=== PATIENT | male | born 1970 | race Caucasian/White ===

== ENCOUNTER → 2021-03-06 13:16 | Outpatient (BNVA) | payer OTHER, SELFPAY | PROVIDERS: Visit Provider Nurse Practitioner | DX: Z20.822 Contact with and (suspected) exposure to COVID-19 (principal) | CPT/HCPCS: 87426; 87635 ==

== ENCOUNTER 2021-10-31 10:23 | Outpatient (CLI) | payer OTHER, SELFPAY ==
--- NOTE | 2021-10-31 10:35 | XR_ITS ---
WS: [id number] Exam: XR lumbar spine 2-3V* [id number] Date/Time of Exam: 10/31/2021 10:35 AM Reason For Exam: BACK PAIN Comparison 09/19/2007. No acute fracture or dislocation. Mild spondylosis. Posterior elements are intact. Disc spaces are pr eserved. XR/XR lumbar spine 2-3V* [id number] IMPRESSION: 1. No fracture or malalignment.
== END 2021-10-31 10:24 | disposition home or self-care (01) ==
PROVIDERS: Visit Provider Dermatology
DX: M54.50 Low back pain, unspecified (principal)
CPT/HCPCS: 72100

== ENCOUNTER 2022-05-31 12:27 | Emergency (ER) | payer BC, MEDICAID, SELFPAY ==
[2022-05-31 12:33] VITALS: BP 152/92; PULSE 72; RESP 16; TEMP 36.6; O2SAT 93; BMI 25.0
[2022-05-31] MEDS: sodium chloride 0.9% 1,000 ML 999 ML IV (13:04)
[2022-05-31] MEDS: ondansetron 2 mg/ML SDV 2 mL 4 MG IVP (13:05)
[2022-05-31 13:07] VITALS: BP 152/92; PULSE 64; RESP 16; O2SAT 91
[2022-05-31 13:17] LABS: Basophils % 0.1 %; Eosinophils # 0.3 10^3/uL (0.0-0.8); Eosinophils % 3.1 %; Hemoglobin 16.3 g/dL (11.7-16.6); Lymphocytes # 1.3 10^3/uL (0.8-4.8); Lymphocytes % 14.5 %; Mean Corpuscular HGB Conc 32.6 g/dL (30.0-36.0); Mean Corpuscular Hemoglobin 29.8 pg (28.0-34.0); Mean Corpuscular Volume 91.4 fl (80-94); Mean Platelet Volume 10.9 fL (7.4-10.4); Monocytes # 0.7 10^3/uL (0.2-0.9); Monocytes % 7.8 %; Neutrophils # 6.45 10^3/uL (1.8-7.7); Neutrophils % 74.2 %; Nucleated Red Blood Cells % 0 %; Platelet Count 197 10^3/cmm (130-400); Red Blood Count 5.47 10^6/uL (4.1-5.3); Red Cell Distribution Width 13.1 % (12.1-15.1); White Blood Count 8.7 10^3/uL (4.0-10.0)
--- NOTE | 2022-05-31 13:22 | ED_ITS ---
HPI - Nausea/Vomiting/Diarrhea General: Chief complaint: Nausea/Vomiting/Diarrhea Stated complaint: n/v/ poss food poisoning Time Seen by Provider: 05/31/22 12:34 Source: patient Mode of arrival: ambulatory History of Present Illness: 81-year-old male presents with persistent nausea vomiting and loose stools that began yesterday after eating something the day prior he narrowed it down to some hamburger helper that he had had no one else in the home is sick. Denies hematochezia melena hematemesis coffee-ground emesis MD elicited complaint: nausea, vomiting and diarrhea Onset (ago): day(s) (1) Description of vomiting: food contents and watery Description of diarrhea: lose Associated nausea: Yes Associated abdominal pain: Yes Location of pain: Diffuse Severity: mild Quality: cramping Exacerbating factors: none Relieving factors: none Associated symtoms: Reports nausea; Denies anxiety, bloating, change in vision, chest pain, cough, diaphoresis, decreased urine output, dizziness, dysuria, epistaxis, fatigue, fecal incontinence, fevers/chills, headache(s), anorexia, malaise, myalgias, numbness, palpitations, rash, short of breath, syncope, tenesmus, tinnitus or weakness Review of Systems Const: Denies: fever(s), chills, fatigue, malaise or diaphoresis Eyes: Denies: change in vision ENMT: Denies: tinnitus or epistaxis Card: Denies: chest pain, palpitations or syncope Resp: Denies: dyspnea, productive cough or non-productive cough GI: Reports: abdominal pain, nausea, vomiting and GI cramping; Denies: bloating or fecal incontinence : Denies: flank pain, dysuria, urinary frequency or urinary urgency Skin/Breast: Denies: rash or pruritus Neuro: Denies: headache(s) or dizziness Psych: Denies: anxiety PFSH ED PFSH: Social History Smoking and tobacco status: current every day smoker e-cigarettes Physical Exam Const: GENERAL APPEARANCE: cooperative and comfortable ORIENTATION/CONSCIOUSNESS: Yes awake, Yes oriented to person, Yes oriented to place and Yes oriented to time HENMT: COMMON NORMALS: normocephalic, atraumatic and hearing grossly normal bilaterally HEAD & SCALP: normocephalic and atraumatic Resp: COMMON NORMALS: normal respiratory effort, No retractions, No use of accessory muscles and clear to auscultation bilaterally AUSCULTATION: clear to auscultation bilaterally Cardio: COMMON NORMALS: regular rate, regular rhythm and No murmurs present (Cardio) RATE: regular rate RHYTHM: regular rhythm GI: COMMON NORMALS: Soft to palpation and No hepatosplenomegaly present AUSCULTATION: Yes normoactive bowel sounds PALPATION: Yes Soft to palpation, No Tenderness to palpation present (GI), No Guarding due to palpation present (GI) and Yes No hepatosplenomegaly present Extremity: COMMON NORMALS: normal to inspection, capillary refill normal, no clubbing, cyanosis or edema, no calf tenderness and no pedal edema Neuro: SENSORIUM/ORIENTATION: Yes oriented to person, Yes oriented to place and Yes oriented to time Skin: COMMON NORMALS: no rashes or lesions noted GENERAL SKIN EXAM: no rashes or lesions noted Course Vital Signs: Vital signs: Vital Signs Temperature 97.9 F 05/31/22 12:33 Pulse Rate 63 05/31/22 14:20 Respiratory Rate 16 05/31/22 14:20 Blood Pressure 144/85 05/31/22 14:20 Pulse Oximetry 97 05/31/22 14:20 Oxygen Delivery Me thod 05/31/22 13:07 MDM - Nausea/Vomiting/Diarrhea Medical Decision Making Labs reviewed. Patient given IV fluids he is feeling better discharge home clinical diet antiemetics as needed follow-up as needed if has any hematochezia return to the emergency room. Medical Records I reviewed the patient's medical records. Lab Data I reviewed the patient's lab results. 05/31/22 13:01 05/31/22 13:01 Laboratory Results WBC 8.7 10^3/uL (4.0-10.0) 05/31/22 13:01 RBC 5.47 10^6/uL (4.1-5.3) H 05/31/22 13:01 Hgb 16.3 g/dL (11.7-16.6) 05/31/22 13:01 Hct 50.0 % (42.0-52.0) 05/31/22 13:01 MCV 91.4 fl (80-94) 05/31/22 13:01 MCH 29.8 pg (28.0-34.0) 05/31/22 13:01 MCHC 32.6 g/dL (30.0-36.0) 05/31/22 13:01 RDW 13.1 % (12.1-15.1) 05/31/22 13:01 Plt Count 197 10^3/cmm (130-400) 05/31/22 13:01 MPV 10.9 fL (7.4-10.4) H 05/31/22 13:01 Neut % (Auto) 74.2 % 05/31/22 13:01 Lymph % (Auto) 14.5 % 05/31/22 13:01 [place] % (Auto) 7.8 % 05/31/22 13:01 Eos % (Auto) 3.1 % 05/31/22 13:01 Baso % (Auto) 0.1 % 05/31/22 13:01 Neut # (Auto) 6.45 10^3/uL (1.8-7.7) 05/31/22 13:01 Lymph # (Auto) 1.3 10^3/uL (0.8-4.8) 05/31/22 13:01 [place] # (Auto) 0.7 10^3/uL (0.2-0.9) 05/31/22 13:01 Eos # (Auto) 0.3 10^3/uL (0.0-0.8) 05/31/22 13:01 Baso # (Auto) 0.0 10^3/uL (0.0-0.1) 05/31/22 13:01 Nucleated RBC % (auto) 0 % 05/31/22 13:01 Nucleated RBCs # 0.0 /100WBC 05/31/22 13:01 Sodium 141 mmol/L (136-145) 05/31/22 13:01 Potassium 4.5 mmol/L (3.5-5.1) 05/31/22 13:01 Chloride 105 mmol/L (98-107) 05/31/22 13:01 Carbon Dioxide 27 mmol/L (22-29) 05/31/22 13:01 Anion Gap 13.5 (5-19) 05/31/22 13:01 BUN 18 mg/dL (6-20) 05/31/22 13:01 Creatinine 0.7 mg/dL (0.7-1.2) 05/31/22 13:01 GFR Calculation 118.4 mL/min (90-130) 05/31/22 13:01 Glucose 109 mg/dL (65-115) 05/31/22 13:01 Calculated Osmolality 294 mOsm/kg (285-295) 05/31/22 13:01 Calcium 9.0 mg/dL (8.5-10.5) 05/31/22 13:01 Total Bilirubin 0.5 mg/dL (0.15-1.2) 05/31/22 13:01 AST 28 U/L (0-40) 05/31/22 13:01 ALT 16 U/L (0-41) 05/31/22 13:01 Alkaline Phosphatase 68 U/L (40-130) 05/31/22 13:01 Total Protein 7.2 g/dL (6.6-8.7) 05/31/22 13:01 Albumin 4.5 g/dL (3.5-5.2) 05/31/22 13:01 Globulin 2.7 g/dL (1.3-4.6) 05/31/22 13:01 Discharge Plan Discharge Patient Disposition: Home Clinical Impression: Nausea & vomiting Condition: Stable Prescriptions: New ondansetron HCl 4 mg tablet 4 mg PO Q6H PRN (Reason: nausea and vomiting) Qty: 20 0RF No Action buprenorphine HCl 8 mg tablet, sublingual 4 mg SUBLINGUAL TID Discharge Orders: Discharge ED (Routine); Ordered 05/31/22 Ordered By: Torito Delgado Discharge Diet: Clear Liquid Discharge Activity: Resume usual activity Patient Instructions: Opioid Safety, Pain Management Activity Restrictions/Additional Instructions: Laboratory tests were unremarkable. Recommend that you follow a clear liquid diet for the next 24 to 48 hours and advance as tolerated using ondansetron as needed for nausea or vomiting. Coding Level of Care Code ED Coordinator Skill Training Program for Alan Guevara
[2022-05-31 13:35] LABS: Alanine Aminotransferase 16 U/L (0-41); Albumin Level 4.5 g/dL (3.5-5.2); Alkaline Phosphatase 68 U/L (40-130); Anion Gap 13.5 (5-19); Aspartate Amino Transferase 28 U/L (0-40); Blood Urea Nitrogen 18 mg/dL (6-20); Carbon Dioxide 27 mmol/L (22-29); Chloride 105 mmol/L (98-107); Globulin 2.7 g/dL (1.3-4.6); Glomerular Filtration Rate 118.4 mL/min (90-130); Glucose 109 mg/dL (65-115); Osmolality Calculated 294 mOsm/kg (285-295); Potassium 4.5 mmol/L (3.5-5.1); Sodium 141 mmol/L (136-145); Total Bilirubin 0.5 mg/dL (0.15-1.2); Total Protein 7.2 g/dL (6.6-8.7)
[2022-05-31 14:15] VITALS: BP 138/84; PULSE 58; RESP 16; O2SAT 94
[2022-05-31 14:20] VITALS: BP 144/85; PULSE 63; RESP 16; O2SAT 97
--- NOTE | 2022-06-01 13:52 | DCPLANNER ---
Addendum entered by Rose Marie Booth 06/09/22 09:26: Patient had a follow up appointment scheduled to establish care with Dr. Bonilla at [facility] - patient did attend appointment. Original Note: drilling manager called patient due to no primary care physician - patient stated that he would like help in getting established with a primary care physician. drilling manager called [facility], spoke with Jory, gave clinic patients information. A follow up appointment was scheduled for May at 10:[address] Bonilla, nurse case management gave patient the appointment information.
== END 2022-05-31 14:22 | disposition home or self-care (01) ==
PROVIDERS: Emergency Provider Family Medicine
DX: R11.2 Nausea with vomiting, unspecified (principal); F17.290 Nicotine dependence, other tobacco product, uncomplicated
CPT/HCPCS: 80053; 85025; 96361; 96374; 99284; J2405; J7030

== ENCOUNTER → 2022-06-07 08:45 | Outpatient (BNVA) | payer BC, MEDICAID, SELFPAY | PROVIDERS: Visit Provider Family Medicine | DX: R11.2 Nausea with vomiting, unspecified (principal); Z79.899 Other long term (current) drug therapy; G62.9 Polyneuropathy, unspecified | CPT/HCPCS: 80053; 80061; 83036; 84439; 84443; 85025 ==

== ENCOUNTER → 2022-10-05 09:43 | Outpatient (BNVA) | payer BC, MEDICAID, SELFPAY | PROVIDERS: PCP Family Medicine; Visit Provider Nurse Practitioner Family | DX: M25.562 Pain in left knee (principal); M11.262 Other chondrocalcinosis, left knee | CPT/HCPCS: 73562 ==

== ENCOUNTER 2023-04-14 17:55 | Emergency (ER) | payer BC, MEDICAID, SELFPAY ==
--- NOTE | 2023-04-14 17:59 | XRR_ITS ---
PROCEDURE INFORMATION: Exam: XR Chest Exam date and time: 04/14/2023 6:18 PM Age: 52 years old Clinical indication: Patient HX: Cough; Chest congestion; Recent pneumonia diagnosis; New onset fever x 1 day TECHNIQUE: Imaging protocol: Radiologic exam of the chest. Views: 1 view. COMPARISON: CR XR chest 1V [id number] 11/02/2017 11:26 PM FINDINGS: Lungs: Unremarkable. No consolidation. Pleural spaces: Unremarkable. No pleural effusion. No pneumothorax. Heart/Mediastinum: Unremarkable. No cardiomegaly. Bones/joints: Unremarkable. XR/XR chest 1V portable [id number] IMPRESSION: No acute findings.
[2023-04-14 18:34] VITALS: BP 183/88; PULSE 77; RESP 17; TEMP 36.4; O2SAT 96; BMI 26.7
[2023-04-14 18:37] LABS: Basophils % 0.6 %; Eosinophils # 0.4 10^3/uL (0.0-0.8); Eosinophils % 5.2 %; Hematocrit 47.2 % (37-53); Lymphocytes # 1.4 10^3/uL (0.8-4.8); Lymphocytes % 21.3 %; Mean Corpuscular HGB Conc 33.3 g/dL (30-55); Mean Corpuscular Hemoglobin 32.4 pg (27-33); Mean Corpuscular Volume 97.3 fl (82-101); Mean Platelet Volume 10.4 fL (7.4-10.4); Monocytes # 0.6 10^3/uL (0.2-0.9); Monocytes % 9.4 %; Neutrophils # 4.24 10^3/uL (1.8-7.7); Neutrophils % 63.2 %; Nucleated Red Blood Cells % 0 %; Platelet Count 159 10^3/cmm (157-399); Red Blood Count 4.85 10^6/uL (3.85-5.65); Red Cell Distribution Width 13.7 % (12.1-15.1); White Blood Count 6.71 10^3/uL (3.29-11.43)
[2023-04-14 19:00] VITALS: BP 168/99; PULSE 73; RESP 16; O2SAT 96
[2023-04-14 19:10] LABS: Alanine Aminotransferase 42 U/L (0-41); Albumin Level 3.9 g/dL (3.5-5.2); Alkaline Phosphatase 76 U/L (40-130); Anion Gap 14.2 (5-19); Aspartate Amino Transferase 32 U/L (0-40); Blood Urea Nitrogen 18 mg/dL (6-20); Calcium 9.2 mg/dL (8.5-10.5); Carbon Dioxide 25 mmol/L (22-29); Chloride 103 mmol/L (98-107); Creatinine Clr Calc Pharmacy 128.0404; Globulin 3.3 g/dL (1.3-4.6); Glomerular Filtration Rate 101.1 mL/min (90-130); Glucose 103 mg/dL (65-115); Magnesium 2.2 mg/dL (1.7-2.3); NT Pro B Type Natriuretic Pept 66 pg/mL (0-125); Osmolality Calculated 288 mOsm/kg (285-295); Potassium 4.2 mmol/L (3.5-5.1); Sodium 138 mmol/L (136-145); Total Bilirubin 0.3 mg/dL (0.15-1.2); Total Protein 7.2 g/dL (6.6-8.7)
--- NOTE | 2023-04-14 20:15 | W.ED.EAR ---
HPI - Ear Problem General: Chief complaint: Ear Stated complaint: sent by , pain in ears, fatigue Time Seen by Provider: 04/14/23 19:34 Source: patient Mode of arrival: ambulatory Limitations: no limitations History of Present Illness: Patient presents emergency department today for evaluation treatment of continued cough and concerns for ear infection. Patient's chart review shows that he was diagnosed with pneumonia a couple of weeks ago. Patient was treated with antibiotics which she states he took in its entirety. He was also given a round of steroids and an albuterol inhaler. Patient has not been running fevers. He still has a cough and reports sputum with clear, stringy mucus. He is concerned as he is experiencing bilateral ear pain now. He has not noticed any draining from the ears. He has had quite a bit of postnasal drip and complains of nasal congestion as well. Review of Systems General: Reports: 10 or more systems reviewed and unremarkable except in HPI and below PFSH ED PFSH: Medical History Right wrist tendonitis GERD (gastroesophageal reflux disease) High risk medication use Bilateral knee pain Chronic back pain Surgical History History of tonsillectomy History of arthroscopic knee surgery bilateral Family History Other Dementia Hypertension Lung disease Psychiatric illness Denies family history of Diabetes CAD (coronary artery disease) Clotting disorder Hyperlipidemia Chronic kidney disease (CKD) Anesthesia complication Bleeding disorder Cancer Stroke Social History Smoking and tobacco/nicotine status: current every day tobacco/nicotine user e-cigarettes E-Cigarette Details: vaporizer device E-cig/vape details: daily. 70PY tobacco Hx (quit 2019) Alcohol intake: current Alcohol intake frequency: few times a month Substance/Drug Use: never Lives independently: Yes Marital status: Number of children: 5 Current occupational status: employed Current occupation: [employer] Current gender identity: Male Special ana maria needs: No Agree to transfusion: Yes Physical Exam Const: COMMON NORMALS: no acute distress, patient oriented x3 and alert HENMT: OTHER: TMs are translucent bilaterally but are bulging with serous accumulation behind the eardrums. EACs are clear without accumulation, redness, or swelling. Pharynx is nonerythematous. Mucous membranes are moist. Patient is audibly congested with boggy nasal passages. Eye: COMMON NORMALS: Equal, round and reactive pupils present, EOMs intact bilaterally and conjunctivae normal CONJUNCTIVA: Yes conjunctivae normal PUPIL: Yes Equal, round and reactive pupils present Neck/C-Spine: COMMON NORMALS: no JVD Lymph: LYMPHATIC: no lymphadenopathy noted Resp: COMMON NORMALS: normal respiratory effort, No retractions and No use of accessory muscles OTHER: No wheezing. No rhonchi. Cardio: COMMON NORMALS: no JVD and regular rate RATE: regular rate : COMMON NORMALS: Yes no CVA tenderness BLADDER/KIDNEY EXAM: Yes no CVA tenderness Back/Pelvis: COMMON NORMALS: no CVA tenderness, thoracic and lumbar spine normal to inspection and thoraco-lumbar ROM normal Extremity: COMMON NORMALS: normal to inspection, full ROM and no pedal edema Neuro: COMMON NORMALS: patient oriented x3 SENSORIUM/ORIENTATION: Yes alert Skin: COMMON NORMALS: no rashes or lesions noted and turgor normal GENERAL SKIN EXAM: no rashes or lesions noted and turgor normal Course Vital Signs: Vital signs: Vital Signs Temperature 97.6 F 04/14/23 18:34 Pulse Rate 67 04/14/23 21:01 Respiratory Rate 16 04/14/23 21:01 Blood Pressure 156/100 04/14/23 21:01 Pulse Oximetry 97 04/14/23 21:01 Oxygen Delivery Me thod Room Air 04/14/23 21:01 MDM - Ear Medical Decision Making Repeat chest x-ray today shows no signs of any residual pneumonias. Patient's cough is more characteristic of remnant mucus removal from his recent illness. Warned him that post pneumonia cough can last for several weeks. Patient's ears are not infected but we did discuss serous otitis media. As he is having quite a bit of postnasal drip he most likely has some inflammation and irritation of the throat which is causing occlusion of his eustachian tubes. We will try patient on another round of steroids and encouraged [id number] Flonase to be used as well. Patient is requesting a refill on his albuterol inhaler as he does not have it with him and will be staying away from home the next night or 2. Medications provided to him here in the emergency department for treatment this evening with rest being sent to his pharmacy to be picked up and continued in the morning. However, strict return precautions were given for any signs of respiratory distress or worsening symptoms. Patient verbalizes understanding and agreement to treatment plan. Differential Diagnosis Likely otitis media (Serous); Unlikely otitis externa, foreign body in ear, ruptured TM or cerumen impaction Lab Data 04/14/23 18:30 04/14/23 18:30 Radiology Impressions Chest X-Ray 04/14/23 17:59 IMPRESSION: No acute findings. Laboratory Results WBC 6.71 10^3/uL (3.29-11.43) 04/14/23 18: RBC 4.85 10^6/uL (3.85-5.65) 04/14/23 18:30 Hgb 15.70 g/dL (11.27-16.99) 04/14/23 18:30 Hct 47.2 % (37-53) 04/14/23 18:30 MCV 97.3 fl (82-101) 04/14/23 18:30 MCH 32.4 pg (27-33) 04/14/23 18: MCHC 33.3 g/dL (30-55) 04/14/23 18:30 RDW 13.7 % (12.1-15.1) 04/14/23 18:30 Plt Count 159 10^3/cmm (157-399) 04/14/23 18:30 MPV 10.4 fL (7.4-10.4) 04/14/23 18:30 Neut % (Auto) 63.2 % 04/14/23 18:30 Lymph % (Auto) 21.3 % 04/14/23 18:30 Lynn % (Auto) 9.4 % 04/14/23 18:30 Eos % (Auto) 5.2 % 04/14/23 18: Baso % (Auto) 0.6 % 04/14/23 18:30 Neut # (Auto) 4.24 10^3/uL (1.8-7.7) 04/14/23 18:30 Lymph # (Auto) 1.4 10^3/uL (0.8-4.8) 04/14/23 18:30 Lynn # (Auto) 0.6 10^3/uL (0.2-0.9) 04/14/23 18:30 Eos # (Auto) 0.4 10^3/uL (0.0-0.8) 04/14/23 18:30 Baso # (Auto) 0.0 10^3/uL (0.0-0.1) 04/14/23 18:30 Nucleated RBC % (auto) 0 % 04/14/23 18:30 Nucleated RBCs # 0.0 /100WBC 04/14/23 18:30 Sodium 138 mmol/L (136-145) 04/14/23 18:30 Potassium 4.2 mmol/L (3.5-5.1) 04/14/23 18:30 Chloride 103 mmol/L (98-107) 04/14/23 18:30 Carbon Dioxide 25 mmol/L (22-29) 04/14/23 18:30 Anion Gap 14.2 (5-19) 04/14/23 18:30 BUN 18 mg/dL (6-20) 04/14/23 18:30 Creatinine 0.8 mg/dL (0.7-1.2) 04/14/23 18:30 GFR Calculation 101.1 mL/min (90-130) 04/14/23 18:30 Glucose 103 mg/dL (65-115) 04/14/23 18:30 Calculated Osmolality 288 mOsm/kg (285-295) 04/14/23 18:30 Calcium 9.2 mg/dL (8.5-10.5) 04/14/23 18:30 Magnesium 2.2 mg/dL (1.7-2.3) 04/14/23 18:30 Total Bilirubin 0.3 mg/dL (0.15-1.2) 04/14/23 18:30 AST 32 U/L (0-40) 04/14/23 18:30 ALT 42 U/L (0-41) H 04/14/23 18:30 Alkaline Phosphatase 76 U/L (40-130) 04/14/23 18:30 NT-Pro-B Natriuret Pep 66 pg/mL (0-125) 04/14/23 18:30 Total Protein 7.2 g/dL (6.6-8.7) 04/14/23 18:30 Albumin 3.9 g/dL (3.5-5.2) 04/14/23 18:30 Globulin 3.3 g/dL (1.3-4.6) 04/14/23 18:30 All radiology interpretation(s) finalized by discharge Discharge Plan Discharge Patient Disposition: Home Clinical Impression: Eustachian tube dysfunction, Cough Condition: Stable Prescriptions: New methylprednisolone 4 mg tablets,dose pack See Rx Instructions .ROUTE .COMPLEX Qty: 21 0RF Rx Instructions: orally per package directions No Action ibuprofen 200 mg capsule 200 mg PO Q8H Tylenol Extra Strength 500 mg powder in packet 1,000 mg PO Q6H PRN saboxone 8 mg PO 2XD albuterol sulfate 90 mcg/actuation HFA aerosol inhaler 2 inh inhalation Q4H PRN (Reason: shortness of breath or wheezing) Qty: 8.5 0RF Discharge Orders: Discharge ED (Routine); Ordered 04/14/23 Ordered By: Arlette Jimenez Referrals: Kash Santos MD [Primary Care Provider] - Discharge Diet: Usual diet Discharge Activity: Increase activity as tolerated Patient Instructions: Fluid In The Ear (Serous Otitis Media) (ED) Activity Restrictions/Additional Instructions: Chest x-ray today shows no residual signs of any consolidation or pneumonia in the lungs. You may still have a clearing cough for several more weeks to help rid any excess mucus and congestion from the chest. This is normal. You can still use your albuterol inhaler as needed to help if you develop coughing fits or begin to feel tight in your chest. On evaluation of your ears, you do not have signs of infection but you do have an accumulation of fluid behind your eardrums. This causes increased pressure and bulging of your eardrums which not only causes pain but also decreases your hearing ability. This is often due to irritation and inflammation of your eustachian tubes. The eustachian tubes are the draining tubes of the fluid from behind the ear that empty into the back of the throat. When the throat is irritated from things such as allergies or inflammation from postnasal drip, it can close the opening of the eustachian tubes and therefore, fluid from behind the ears cannot drain. Unfortunately, if the fluid is not able to be removed from the ears, it is possible to develop an infection so, if you continue to have pain and irritation of your ears, develop fever, pain below your ears or behind your ears need to be seen and reevaluated again for potential development of infection. Until then, when to provide you some anti-inflammatory medication to see if we can reopen the eustachian tubes. I also encourage you to purchase [id number] Flonase as this is a steroid which is oftentimes delivered directly to the source of the opening of the eustachian tubes when it is used. Use 1 squirt in each nostril twice a day for the next few days as treatment. Coding Level of Care Code ED Billiard Table Repairer for Alan Guevara
[2023-04-14] MEDS: dexamethasone 10 mg/mL INJ IM (20:42)
[2023-04-14] MEDS: albuterol 8 gm MDI 2 PUFF INHALATION (21:00)
[2023-04-14 21:01] VITALS: BP 156/100; PULSE 67; RESP 16; O2SAT 97
== END 2023-04-14 21:02 | disposition home or self-care (01) ==
PROVIDERS: Emergency Medicine; Emergency Provider Physician Assistant; PCP Family Medicine
DX: H69.93 Unspecified Eustachian tube disorder, bilateral (principal); R05.9 Cough, unspecified; F17.290 Nicotine dependence, other tobacco product, uncomplicated
CPT/HCPCS: 36415; 71045; 80053; 83735; 83880; 85025; 94640; 96372; 99284; J1100; J3535

== ENCOUNTER 2024-08-09 10:51 | Emergency (ER) | payer BC, MEDICAID, SELFPAY ==
[2024-08-09 11:13] VITALS: BP 172/88; PULSE 60; RESP 17; TEMP 36.7; O2SAT 97; BMI 27.7
--- NOTE | 2024-08-09 11:33 | ED_ITS ---
HPI - Extremity Problem General: Chief complaint: Extremity Injury, Upper Stated complaint: left arm pain Time Seen by Provider: 08/09/24 11:30 History of Present Illness: 53-year-old male is presenting with left elbow pain for the last 3 weeks, he suspects he overused it at work but denies any discrete event such as trauma injury fall. He denies any associated fever chills swelling skin changes numbness or motor weakness. Pain is intermittent and usually associated with extension of the wrist. He denies any other acute complaints. He takes Mobic daily. Associated symptoms: Deny chest pain, fever(s) or rash Related Data Home Medications ?Medication ?Instructions ?Recorded ?Confirmed ibuprofen 200 mg capsule 200 mg PO Q8H 10/05/2206/11 saboxone 8 mg PO 2XD 03/31/23 5 Previous Rx's ?Medication ?Instructions ?Recorded duloxetine 30 mg capsule,delayed 30 mg PO DAILY #30 ca ps 05/02/24 release hydroxyzine HCl 50 mg tablet 50 mg PO QID PRN anxiety #120 tabs 05/02/24 trazodone 100 mg tablet 200 mg (2 x 100 mg) PO .HS P RN 05/02/24 insomnia #60 tabs Allergies Allergy/AdvReac Type Severity Reaction Status Date / Time No Known Allergies Allergy Verified 06/11/24 15:19 Review of Systems General: Reports: 10 or more systems reviewed and unremarkable except in HPI and below Const: Denies: fever(s) Eyes: Denies: change in vision ENMT: Denies: throat pain or odynophagia Card: Denies: chest pain, palpitations or dyspnea on exertion Resp: Denies: dyspnea, productive cough, non-productive cough or wheezing GI: Denies: abdominal pain, nausea, vomiting, diarrhea or constipation Musc: Reports: joint pain (bilateal knee pain, bilateral wrists R>L); Denies: neck pain or back pain Skin/Breast: Denies: rash, new lesions or changing lesions (sun burn) Neuro: Denies: headache(s), numbness in extremities (intermittent bilateral feet numbness/tingling) or weakness in extremities Psych: Denies: anxiety, depression or mood swings PFS ED PFSH: Medical History (Updated 08/09/24 @ 11:54 by Denny Villalta MD) Psychiatric care Ganglion cyst of dorsum of right wrist Right wrist tendonitis GERD (gastroesophageal reflux disease) High risk medication use Bilateral knee pain Chronic back pain Surgical History History of tonsillectomy History of arthroscopic knee surgery bilateral Family History Other Dementia Hypertension Lung disease Psychiatric illness Denies family history of Diabetes CAD (coronary artery disease) Clotting disorder Hyperlipidemia Chronic kidney disease (CKD) Anesthesia complication Bleeding disorder Cancer Stroke Social History Smoking and tobacco/nicotine status: current every day tobacco/nicotine user e- cigarettes E-Cigarette Details: vaporizer device E-cig/vape details: daily. 70PY tobacco Hx (quit 2019) Alcohol intake: current Alcohol intake frequency: few times a month Substance/Drug Use: never Lives independently: Yes Marital status: Number of children: 5 Current occupational status: employed Current occupation: [employer] Current gender identity: Male Special ana maria needs: No Agree to transfusion: Yes Physical Exam Narrative: EXAM NARRATIVE: GEN: well-appearing, in no acute distress HEENT: -Head: NC/AT; -Eyes: PERRL, EOMI. No discharge or redn ess; -Ears: External ears are normal. Normal TMs. -Nose: Normal nares. -Mouth and throat: MMM. Normal gums, muc jackie, palate,. Good dentition. NECK: Supple, with no masses. CV: RRR, no m/r/g. LUNGS: CTAB, no w/r/c. ABD: Soft, NT/ND, NBS, no masses or organomegaly. SKIN: Warm, well perfused. No skin rashes or abnormal lesions. MSK: No significant bony tenderness of the left upper extremity particularly no tenderness over the proximal ulna or radius, no tenderness over the medial or lateral epicondyle of the humerus, there is pain with extension of the left wrist, pain is at the left elbow, there is some localized tenderness over the tendons of the extensors but no swelling warmth edema, distally the limb is neurovascularly intact and otherwise musculoskeletal exam is unremarkable, no deformities or signs of scoliosis. Normal gait. EXT: No clubbing, cyanosis, or edema. NEURO: Ambulating with no limitations. Normal muscle strength and tone. No focal deficits. PSYCH: Good Judgment. AOx3. Normal memory, mood, and affect. Course Vital Signs: Vital signs: Vital Signs Temperature 98.1 F 08/09/24 11:13 Pulse Rate 60 08/09/24 11:13 Respiratory Rate 17 08/09/24 11:13 Blood Pressure 172/88 08/09/24 11:13 Pulse Oximetry 97 08/09/24 11:13 Oxygen Delivery Me thod Room Air 08/09/24 11:13 MDM - Extremity (Nontraumatic) Medical Decision Making Clinically, patient's presentation is most consistent with tendinitis. No bony abnormality and no history of trauma to suggest fracture or bony pathology. Patient may need some imaging x-rays but does not need them emergently today at this time. Patient was offered these but he declined. I think the best would be for the patient to follow-up with orthopedic and if imaging this is there that can be ordered as an outpatient. 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 Continue NSAIDs rest ice elevate. No radiology studies performed this visit Discharge Plan Discharge Patient Disposition: Home Clinical Impression: Tendinitis Condition: Stable Prescriptions: No Action ibuprofen 200 mg capsule 200 mg PO Q8H saboxone 8 mg PO 2XD duloxetine 30 mg capsule,delayed release(DR/EC) 30 mg PO DAILY Qty: 30 2RF trazodone 100 mg tablet 200 mg PO .HS PRN (Reason: insomnia) Qty: 60 2RF hydroxyzine HCl 50 mg tablet 50 mg PO QID PRN (Reason: anxiety) Qty: 120 2RF Discharge Orders: Discharge ED (Routine); Ordered 08/09/24 Ordered By: Denny Villalta Referrals: Suellen Carias MD [Physician, Orthopedics] Kash Santos MD [Primary Care Provider, Family Practice] Patient Instructions: Lateral Epicondylitis Print Language: Togolese Coding Level of Care Code ED Inventory Management Specialist for Alan Guevara
--- NOTE | 2024-08-11 12:33 | PC.NURSE ---
Referral sent to ortho.
== END 2024-08-09 12:00 | disposition home or self-care (01) ==
PROVIDERS: Emergency Provider Emergency Medicine; PCP Family Medicine
DX: M77.9 Enthesopathy, unspecified (principal)
CPT/HCPCS: 99281

== ENCOUNTER → 2024-08-27 13:26 | Outpatient (BNVA) | payer BC, MEDICAID, SELFPAY | PROVIDERS: PCP Family Medicine; Visit Provider Specialist | DX: M77.12 Lateral epicondylitis, left elbow (principal) | CPT/HCPCS: 73080 ==

== ENCOUNTER → 2024-09-03 08:38 | Outpatient (BNVA) | payer BC, MEDICAID, SELFPAY | PROVIDERS: PCP Family Medicine; Visit Provider Specialist | DX: M71.331 Other bursal cyst, right wrist (principal); M25.531 Pain in right wrist | CPT/HCPCS: 73110 ==

== ENCOUNTER 2024-09-24 06:58 | Outpatient (CLI) | payer BC, MEDICAID, SELFPAY ==
--- NOTE | 2024-09-24 07:15 | MRR_ITS ---
PROCEDURE INFORMATION: Exam: MR Right Upper Extremity Joint Without Contrast; Wrist Exam date and time: 09/24/2024 7:24 AM Age: 54 years old Clinical indication: Pain; Wrist; Right; Additional info: M67.431 - ganglion, right wrist TECHNIQUE: Imaging protocol: Magnetic resonance imaging of the right upper extremity without contrast. Exam focused on the wrist. COMPARISON: CR XR wrist RT min 3V* [id number] 09/03/2024 8:40 AM FINDINGS: Bones/joints: Radiocarpal and distal radioulnar joints are intact without evidence of fracture or subluxation. There are subchondral cystic changes of the lunate with slight positive ulnar variance suggestive of sequela of chronic ulnocarpal abutment. There is a 8 mm ganglion cyst projecting inferiorly from the pisotriquetral articulation. Moderate pisotriquetral regional degeneration. Complex cystic lesion in the distal pole of the scaphoid, favored to represent a complex subchondral cyst associated with degeneration of the triscaphe. No evidence of osteonecrosis or inflammatory arthropathy. Scapholunate ligament: Grossly intact. Lunotriquetral ligament: Grossly intact. Triangular fibrocartilage complex: Degenerative fraying of the articular disc. Otherwise grossly intact. There may be subtle perforation (images 43-44 of series 1000). Flexor compartment tendons: Intact. Extensor compartment tendons: Intact. Trace extensor compartment II tenosynovitis. MR/MR wrist RT wo con* [id number] IMPRESSION: 1. 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 2. Findings compatible with chronic ulnocarpal abutment with subchondral cystic change of the lunate. 3. Degenerative fraying of the triangular fibrocartilage articular disc with possible perforation.
== END 2024-09-24 06:59 | disposition home or self-care (01) ==
LOC: RAD 06:59
PROVIDERS: PCP Family Medicine; Visit Provider Specialist
DX: M67.431 Ganglion, right wrist (principal); M85.641 Other cyst of bone, right hand
CPT/HCPCS: 73221

== ENCOUNTER 2024-10-21 19:22 | Emergency (ER) | payer BC, MEDICAID, SELFPAY ==
[2024-10-21 19:29] VITALS: BP 169/96; PULSE 78; RESP 16; TEMP 36.7; O2SAT 98
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
--- OUTSIDE RECORDS SUMMARY | 2024-10-21 19:29 | XMS_ITS | Clinical Summary ---
Author Organization [facility] Address [address] 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 Role Phone Unavailable Primary Care Provider Unavailabl e Allergies No known active allergies Encounters Date Type Department Care Team Description 09/16/2024 External Device Data [facility] ABSTRACTION Provider, Abstract 09/16/2024 External Device Data [facility] ABSTRACTION Provider, Abstract 09/16/2024 External Device Data [facility] ABSTRACTION Provider, Abstract 09/09/2024 Telephone [facility] [address] [place] [id number] Sara Davenport MD General from Last 3 Months Social History Tobacco Use Types Packs/Day Years Used Date Smoking Tobacco: Never Assessed Sex and Gender Information Value Date Recorded Sex Assigned at Not on file Legal Sex 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 Gender Identity Not on file Sexual Orientation Not on file Plan of Treatment Upcoming Encounters Date Type Department Care Team (Late st Contact Info) Description 12/18/2024 11:00 AM CDT Office Visit [facility] [address] [place] [phone] Sara Davenport MD [address] [place] [phone] Health Maintenance Due Date Last Done Comments DTAP/TDAP/TD VACCINES (1 - Tdap) 1988 HEPATITIS B VACCINES (1 of 3 - 19+ 3-dose series) 11/1988 COLORECTAL SCREENING 2014 Colorectal Cancer Screening 2014 FIT-DNA Q 3 years 2014 FIT/FOBT Q 1 year 2014 Flex Sig/CT Colonography Q 5 years 2014 ZOSTER VACCINE (1 of 2) 08/26/2019 INFLUENZA VACCINE (#1) 2024 Insurance [id number] [place] [id number] [employer] [place] MEDICAID
--- NOTE | 2024-10-21 20:53 | W.ED.ABDPA2 ---
HPI - Abdominal Pain General: Chief Complaint: Abdominal Pain Stated Complaint: Rt Side Pain to Back\BP High Time Seen by Provider: 10/21/24 20:34 History of Present Illness: Patient is a pleasant 54-year-old gentleman with chronic pain contract on Suboxone, reports to the emergency room with acute left flank and left lower quadrant pain that occurred 1/2-2 hours ago. Patient thought he needed to have a BM despite having a BM normal yesterday, and this morning. He went to have a BM, was unable to void, and broke out in a sweat due to the pain. He did not take any additional medications or Suboxone. He is able to pass gas. He has not had a change in his stool. There is not been any nausea or vomiting. He denies a previous history of renal colic. Associated Symptoms: Denies dysuria, nausea and vomiting Related Data Home Medications ?Medication ?Instructions ?Recorded ?Confirmed ibuprofen 200 mg capsule 200 mg PO Q8H 10/05/22 10/03/24 saboxone 8 mg PO 2XD 03/31/23 10/03/24 Previous Rx's ?Medication ?Instructions ?Recorded hydroxyzine HCl 50 mg tablet 50 mg PO QID PRN anxiety #120 tabs 05/02/24 trazodone 100 mg tablet 200 mg (2 x 100 mg) PO .HS PRN 05/02/24 insomnia #60 tabs duloxetine 30 mg capsule,delayed 30 mg PO DAILY #90 caps 10/03/24 release hydrochlorothiazide 25 mg tablet 25 mg PO QAM #60 tabs 10/03/24 losartan 100 mg tablet 100 mg PO DAILY #90 tabs 10/03/24 potassium chloride 10 mEq 10 meq PO DAILY #60 tabs 10/03/24 tablet,extended release (Klor-Con) cephalexin 500 mg capsule 500 mg PO BID 5 days #10 caps 10/21/24 Allergies Allergy/AdvReac Type Severity Reaction Status Date / Time No Known Allergies Allergy Verified 10/03/24 13:25 Review of Systems ENMT: Denies: throat pain or dry mouth Resp: Denies: dyspnea or non-productive cough GI: Reports: abdominal pain; Denies: nausea or vomiting : Reports: flank pain and difficulty urinating; Denies: dysuria Musc: Denies: neck pain or back pain Neuro: Denies: headache(s), numbness in extremities or lack of coordination PFSH ED PFSH: Medical History (Updated 10/21/24 @ 23:25 by KIRAN Allen) Psychiatric care Ganglion cyst of dorsum of right wrist Right wrist tendonitis GERD (gastroesophageal reflux disease) High risk medication use Bilateral knee pain Chronic back pain Surgical History History of tonsillectomy History of arthroscopic knee surgery bilateral Family History Other Dementia Hypertension Lung disease Psychiatric illness Denies family history of Diabetes CAD (coronary artery disease) Clotting disorder Hyperlipidemia Chronic kidney disease (CKD) Anesthesia complication Bleeding disorder Cancer Stroke Social History Smoking and tobacco/nicotine status: former use of tobacco/nicotine Alcohol intake: current Alcohol intake frequency: few times a month Substance/Drug Use: never Lives independently: Yes Marital status: Number of children: 5 Current occupational status: employed Current occupation: [employer] Current gender identity: Male Special ana maria needs: No Agree to transfusion: Yes Physical Exam Const: COMMON NORMALS: patient oriented x3 HENMT: COMMON NORMALS: normocephalic and atraumatic HEAD & SCALP: normocephalic and atraumatic Resp: COMMON NORMALS: normal respiratory effort and clear to auscultation bilaterally AUSCULTATION: clear to auscultation bilaterally Cardio: COMMON NORMALS: regular rate and regular rhythm RATE: regular rate RHYTHM: regular rhythm GI: COMMON NORMALS: Normal to inspection, nondistended, normoactive bowel sounds present, Soft to palpation and No hepatosplenomegaly present AUSCULTATION: Yes normoactive bowel sounds PALPATION: Yes Soft to palpation, Yes Tenderness to palpation present (GI) Details: LLQ and Yes No hepatosplenomegaly present : BLADDER/KIDNEY EXAM: Yes CVA tenderness on the left Back/Pelvis: GENERAL BACK: Yes CVA tenderness Extremity: COMMON NORMALS: normal to inspection, full ROM and capillary refill normal Neuro: COMMON NORMALS: patient oriented x3, CN's II-XII intact bilaterally and moves all extremities Psych: COMMON NORMALS: mental status grossly normal, Normal thought process present and cooperative THOUGHT PROCESS: Normal thought process present Course Reevaluation(s): Reevaluation #1: 2200: Patient stated pain had resolved. no n/v. ua was no longer brown Vital Signs: Vital signs: Vital Signs Temperature 98.1 F 10/21/24 19:29 Pulse Rate 67 10/21/24 22:05 Respiratory Rate 16 10/21/24 19:29 Blood Pressure 136/76 10/21/24 22:05 Pulse Oximetry 96 10/21/24 22:05 Oxygen Delivery Me thod Room Air 10/21/24 22:05 MDM - Abdominal Pain Medical Decision Making Patient is 54-year-old gentleman with abrupt onset of left flank and left lower quadrant pain that was consistent with renal colic. He had association to hematuria, although there was no sign of recent stone passage or urolithiasis on CT. Patient will need to follow-up urine analysis to ensure his hematuria is cleared or referral to urology. Discussed this with patient. Will send antibiotics to the pharmacy. Urine is under culture. Lab Data 10/21/24 21:26 10/21/24 21:26 Labs/Radiology: Radiology Impressions Abdomen/Pelvis CT 10/21/24 22:16 IMPRESSION: Aortic atherosclerosis. No definite acute abdominopelvic abnormality. Laboratory Results WBC 7.32 10^3/uL (3.29-11.43) 10/21/24 21: RBC 4.94 10^6/uL (3.85-5.65) 10/21/24 21:26 Hgb 15.00 g/dL (11.27-16.99) 10/21/24 21: Hct 44.1 % (37-53) 10/21/24 21: MCV 89.3 fl (82-101) 10/21/24 21:26 MCH 30.4 pg (27-33) 10/21/24 21: MCHC 34.0 g/dL (30-55) 10/21/24 21: RDW 13.4 % (12.1-15.1) 10/21/24 21: Plt Count 189 10^3/cmm (157-399) 10/21/24 21:26 MPV 9.9 fL (7.4-10.4) 10/21/24 21: Neut % (Auto) 72.6 % 10/21/24 21:26 Lymph % (Auto) 19.5 % 10/21/24 21:26 Grayson % (Auto) 6.7 % 10/21/24 21: Eos % (Auto) 0.7 % 10/21/24: Baso % (Auto) 0.4 % 10/21/24 21: Neut # (Auto) 5.31 10^3/uL (1.8-7.7) 10/21/24 21: Lymph # (Auto) 1.4 10^3/uL (0.8-4.8) 10/21/24 21: Grayson # (Auto) 0.5 10^3/uL (0.2-0.9) 10/21/24: Eos # (Auto) 0.1 10^3/uL (0.0-0.8) 10/21/24: Baso # (Auto) 0.0 10^3/uL (0.0-0.1) 10/21/24: Nucleated RBC % (auto) 0 % 10/21/24: Nucleated RBCs # 0.0 /100WBC 10/21/24 21: Sodium 142 mmol/L (136-145) 10/21/24 21: Potassium 3.9 mmol/L (3.5-5.1) 10/21/24 21: Chloride 102 mmol/L (98-107) 10/21/24 21: Carbon Dioxide 28 mmol/L (22-29) 10/21/24 21: Anion Gap 15.9 (5-19) 10/21/24 21: BUN 15 mg/dL (6-20) 10/21/24 21: Creatinine 0.9 mg/dL (0.7-1.2) 10/21/24 21: GFR Calculation 87.6 mL/min (90-130) L 10/21/24 21: Glucose 98 mg/dL (65-115) 10/21/24 21: Calculated Osmolality 295 mOsm/kg (285-295) 10/21/24: Lactic Acid 1.2 mmol/L (0.5-2.2) 10/21/24: Calcium 9.9 mg/dL (8.5-10.5) 10/21/24: Magnesium 2.3 mg/dL (1.7-2.3) 10/21/24 21: Total Bilirubin 0.3 mg/dL (0.15-1.2) 10/21/24 21: AST 33 U/L (0-40) 10/21/24 21: ALT 36 U/L (0-41) 10/21/24 21: Alkaline Phosphatase 74 U/L (40-130) 10/21/24 21: Total Protein 7.5 g/dL (6.6-8.7) 10/21/24 21: Albumin 4.4 g/dL (3.5-5.2) 10/21/24 21: Globulin 3.1 g/dL (1.3-4.6) 10/21/24 21: Lipase 36 U/L (13-60) 10/21/24 21: Urine Color Yellow (Yellow) 10/21/24 20:35 Urine Appearance Clear (CLEAR) 10/21/24 20:35 Urine pH 6.5 (5-7) 10/21/24 20:35 Ur Specific Council 1.012 (1.005-1.030) 10/21/24 20:35 Urine Protein Trace (Negative) A 10/21/24 20:35 Urine Glucose (UA) Negative (Normal) 10/21/24 20: Urine Ketones Negative (Negative) 10/21/24 20:35 Urine Blood 3+ (Negative) A 10/21/24 20:35 Urine Nitrate Negative (Negative) 10/21/24 20:35 Urine Bilirubin Negative (Negative) 10/21/24 20:35 Urine Urobilinogen 1.0 mg/dL (Negative) 10/21/24 20:35 Ur Leukocyte Esterase Trace (Negative) A 10/21/24 20:35 Urine RBC >100 /hpf (0-2) H 10/21/24 20:35 Urine WBC 0-5 /hpf (0-5) 10/21/24 20:35 Ur Squamous Epith Cells 0-5 /hpf (0-5) 10/21/24 20:35 Amorphous Sediment Not Reportable 10/21/24 20:35 Urine Bacteria None seen /hpf (NONE) 10/21/24 20:35 Hyaline Casts 0-4 /lpf H 10/21/24 20:35 All radiology interpretation(s) finalized by discharge Discharge Plan Discharge Patient Disposition: Home Clinical Impression: Hematuria due to acute cystitis Condition: Stable Prescriptions: New cephalexin 500 mg capsule 500 mg PO BID 5 Days Qty: 10 0RF No Action ibuprofen 200 mg capsule 200 mg PO Q8H saboxone 8 mg PO 2XD trazodone 100 mg tablet 200 mg PO .HS PRN (Reason: insomnia) Qty: 60 2RF hydroxyzine HCl 50 mg tablet 50 mg PO QID PRN (Reason: anxiety) Qty: 120 2RF hydrochlorothiazide 25 mg tablet 25 mg PO QAM Qty: 60 1RF losartan 100 mg tablet 100 mg PO DAILY Qty: 90 1RF duloxetine 30 mg capsule,delayed release(DR/EC) 30 mg PO DAILY Qty: 90 1RF potassium chloride [Klor-Con 10] 10 mEq tablet extended release 10 meq PO DAILY Qty: 60 1RF Discharge Orders: Discharge ED (Routine); Ordered 10/21/24 Ordered By: Heena Petty Referrals: Kash Santos MD [Primary Care Provider, Family Practice] Discharge Diet: Usual diet Discharge Activity: Resume usual activity Patient Instructions: Hematuria (ED), Patient Portal & Lisa Instructions Activity Restrictions/Additional Instructions: Hold ibuprofen, NSAIDs. Call your doctor tomorrow for follow-up of your hematuria. You will need reevaluation and reutilization of your urine analysis through your primary care physician. Antibiotics have been sent to the pharmacy. Make sure you take a probiotic or eat active culture yogurt to avoid infectious diarrhea Return to ED for worsening or returning symptoms. 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
[2024-10-21 21:36] LABS: Hematocrit 44.1 % (37-53); Hemoglobin 15.00 g/dL (11.27-16.99); Mean Corpuscular HGB Conc 34.0 g/dL (30-55); Mean Corpuscular Hemoglobin 30.4 pg (27-33); Mean Corpuscular Volume 89.3 fl (82-101); Nucleated Red Blood Cells % 0 %; Platelet Count 189 10^3/cmm (157-399); Red Blood Count 4.94 10^6/uL (3.85-5.65); White Blood Count 7.32 10^3/uL (3.29-11.43)
[2024-10-21 21:53] LABS: Glucose Urine UA Negative (Normal); Nitrate Urine Negative (Negative); Specific Gravity, Urine 1.012 (1.005-1.030)
[2024-10-21 21:58] LABS: Add Urine Microscopic? YES
[2024-10-21 22:05] VITALS: BP 136/76; PULSE 67; O2SAT 96
[2024-10-21 22:09] LABS: Alanine Aminotransferase 36 U/L (0-41); Albumin Level 4.4 g/dL (3.5-5.2); Alkaline Phosphatase 74 U/L (40-130); Anion Gap 15.9 (5-19); Aspartate Amino Transferase 33 U/L (0-40); Blood Urea Nitrogen 15 mg/dL (6-20); Calcium 9.9 mg/dL (8.5-10.5); Carbon Dioxide 28 mmol/L (22-29); Chloride 102 mmol/L (98-107); Creatinine Clr Calc Pharmacy 113.3396; Globulin 3.1 g/dL (1.3-4.6); Glucose 98 mg/dL (65-115); Lipase 36 U/L (13-60); Magnesium 2.3 mg/dL (1.7-2.3); Osmolality Calculated 295 mOsm/kg (285-295); Potassium 3.9 mmol/L (3.5-5.1); Sodium 142 mmol/L (136-145); Total Protein 7.5 g/dL (6.6-8.7)
[2024-10-21 22:10] LABS: Lactic Sepsis W/Reflex 1.2 mmol/L (0.5-2.2)
--- NOTE | 2024-10-21 22:16 | CTR_ITS ---
PROCEDURE INFORMATION: Exam: CT Abdomen And Pelvis Without Contrast Exam date and time: 10/21/2024 10:28 PM Age: 54 years old Clinical indication: Abdominal pain; Other: Llq TECHNIQUE: Imaging protocol: Computed tomography of the abdomen and pelvis without contrast. Radiation optimization: All CT scans at this facility use at least one of these dose optimization techniques: automated exposure control; mA and/or kV adjustment per patient size (includes targeted exams where dose is matched to clinical indication); or iterative reconstruction. COMPARISON: No relevant prior studies available. RADIATION DOSE METRICS: Total DLP (mGy-cm): 840.61 FINDINGS: Diaphragm: Questionable small hiatal hernia. Liver: Normal. No mass. Gallbladder and biliary ducts: Normal. No calcified stones. No ductal dilation. Pancreas: Normal. No ductal dilation. Spleen: Normal. No splenomegaly. Adrenal glands: Normal. No mass. Kidneys and ureters: Normal. No hydronephrosis. Stomach and bowel: Unremarkable. No obstruction. No mucosal thickening. Appendix: No evidence of appendicitis. Intraperitoneal space: Unremarkable. No free air. No significant fluid collection. Vasculature: Aortic atherosclerosis. Lymph nodes: Unremarkable. No enlarged lymph nodes. Urinary bladder: Unremarkable as visualized. Reproductive: Unremarkable as visualized. Bones/joints: Mild degenerative changes of vertebral bodies with multilevel endplate spurring and disc space narrowing. Soft tissues: Unremarkable. Other findings: Motion artifact limits exam. CT/CT abdomen pelvis wo con [id number] IMPRESSION: Aortic atherosclerosis. No definite acute abdominopelvic abnormality.
[2024-10-22] MEDS: cefTRIAXone 1,000 MG in water for injection-sterile 2.1 ML 1 MG IM (00:17)
[2024-10-22 00:45] VITALS: BP 142/99; PULSE 70; O2SAT 96
== END 2024-10-22 00:55 | disposition home or self-care (01) ==
PROVIDERS: Emergency Provider Physician Assistant; PCP Family Medicine
DX: N30.01 Acute cystitis with hematuria (principal); Z87.891 Personal history of nicotine dependence
CPT/HCPCS: 36415; 74176; 80053; 81001; 83605; 83690; 83735; 85025; 87086; 96372; 99284; J0696

== ENCOUNTER → 2024-11-12 15:55 | Outpatient (BNVA) | payer BC, MEDICAID, SELFPAY | PROVIDERS: PCP Family Medicine; Visit Provider Family Medicine | DX: R39.9 Unspecified symptoms and signs involving the genitourinary system (principal); Z12.5 Encounter for screening for malignant neoplasm of prostate; N40.0 Benign prostatic hyperplasia without lower urinary tract symptoms | CPT/HCPCS: 80061; 81000; 84153 ==